=== PATIENT | female | born 1945 | race Two or more races ===

== ENCOUNTER 2022-11-13 16:40 | Emergency (ER) | payer OTHER ==
[2022-11-13 16:52] VITALS: PULSE 75; BMI 20.2
[2022-11-13] MEDS ORDERED: morphine CARPU-JECT 4 MG/1 ML DISP.SYRIN IVPUSH ONE (19:24)
[2022-11-13] MEDS ORDERED: SODIUM CHLORIDE 0.9% 500 ML INFUS.BAG IV ONE (19:24)
[2022-11-13] MEDS ORDERED: ONDANSETRON 4 MG/2 ML VIAL IVPUSH ONE (19:24)
[2022-11-13] MEDS ORDERED: morphine SULFATE 4 MG/ML VIAL ONE (19:31)
[2022-11-13] MEDS ORDERED: ONDANSETRON 4 MG/2 ML VIAL ONE (19:32)
[2022-11-13 19:57] LABS: BASO % 0.5 % (0-2.0); EOS % 1.9 % (0-4.5); HEMATOCRIT 39.2 % (32.4-45.2); HEMOGLOBIN 12.9 GM/dL (10.7-15.3); LYMPH % 4.7 % (8-40); MCH 28.6 pg (25.7-33.7); MEAN CELL VOLUME 86.7 fl (80-96); MEAN PLT VOLUME 8.4 fl (7.5-11.1); MONO % 10.7 % (3.8-10.2); NEUT % 82.2 % (42.8-82.8); PLATELET COUNT 225 10^3/uL (134-434); RBC 4.53 M/mm3 (3.60-5.2); RDW 13.7 % (11.6-15.6); WHITE BLOOD COUNT 6.5 K/mm3 (4.0-10.0)
[2022-11-13 20:18] LABS: POTASSIUM 4.7 mmol/L (3.5-5.1)
[2022-11-13 20:20] LABS: BLOOD UREA NITROGEN 10.7 mg/dL (7-18); CALCIUM 8.5 mg/dL (8.5-10.1)
[2022-11-13 20:21] LABS: ALBUMIN 3.4 g/dl (3.4-5.0); MAGNESIUM 1.5 mg/dL (1.8-2.4)
[2022-11-13 20:23] LABS: CREATININE 0.8 mg/dL (0.55-1.3)
[2022-11-13 20:25] LABS: BILIRUBIN,TOTAL 0.4 mg/dL (0.2-1); TOT PROT 6.8 g/dl (6.4-8.2)
[2022-11-13] MEDS ORDERED: MAGNESIUM 1GM/D5W - 1 GM/100 ML IVPB IVPB ONE (20:38)
[2022-11-13 20:48] LABS: EPI CELLS >36 /uL (0-25.1); HYALINE CASTS 1 /uL (0-3.1); PH,URINE 6.5 (5.0-8.0); URINE APPEARANCE CLOUDY; URINE BACTERIA 7091 /uL (0-1359); URINE BILIRUBIN NEGATIVE (NEGATIVE); URINE COLOR YELLOW; URINE GLUCOSE (UA) NEGATIVE (NEGATIVE); URINE KETONE NEGATIVE (NEGATIVE); URINE LEUK ESTERASE 3+ (NEGATIVE); URINE NITRITE NEGATIVE (NEGATIVE); URINE PROTEIN 1+ (NEGATIVE); URINE RBC 7 /uL (0-23.9); URINE UROBILINOGEN 0.2 mg/dL (0.2-1.0); URINE WBC 710 /uL (0-25.8)
[2022-11-13 21:10] LABS: LACTIC ACID 2.4 mmol/L (0.4-2.0)
[2022-11-13] MEDS ORDERED: CEFTRIAXONE 1 GM/50 ML BAG ONE (22:51)
[2022-11-13 23:24] VITALS: BP 112/70; RESP 16; TEMP 97.9
== END 2022-11-14 01:27 | disposition home or self-care (01) ==
LOC: JER 16:40
PROC: 3E033GC Introduction of Other Therapeutic Substance into Peripheral Vein, Percutaneous Approach (ICD-10-PCS; principal; 2022-11-13)
PROC: 3E03329 Introduction of Other Anti-infective into Peripheral Vein, Percutaneous Approach (ICD-10-PCS; 2022-11-13)
PROC: 3E033GC Introduction of Other Therapeutic Substance into Peripheral Vein, Percutaneous Approach (ICD-10-PCS; 2022-11-13)
DX: M54.50 Low back pain, unspecified (principal); R11.2 Nausea with vomiting, unspecified; N39.0 Urinary tract infection, site not specified; Z91.81 History of falling
CPT/HCPCS: 36415; 71045-TC-FY; 72131-TC; 74177-TC; 76705-TC; 80053; 81003; 83605; 83690; 83735; 84484; 85025; 87086; 93005; 93010; 99285-25